=== PATIENT | male | born 1985 | race Caucasian/White ===

== ENCOUNTER 2016-12-16 22:42 | Emergency (ER) | payer OTHER ==
[~2016-12-16] VITALS: Ht 185.4 cm; Wt 100.0 kg
[2016-12-16 22:45] VITALS: BP 130/75; PULSE 131; RESP 14; TEMP 98.5; O2SAT 96
[2016-12-16] MEDS ORDERED: LIDOCAINE HCL 1% 50 ML VIAL INFIL ONE (23:00)
[2016-12-16] MEDS ORDERED: TETANUS/DIPHTHERIA TOXOID ADULT 0.5 ML VIAL IM ONE (23:00)
[2016-12-16] MEDS ORDERED: [UNRECOGNIZED DRUG - CODE] PO (23:10)
[2016-12-16 23:31] LABS: AUTOMATED NEUTROPHIL # 7.7 TH/MM3 (1.8-7.7); BASOPHIL % 0.4 % (0.0-2.0); HEMATOCRIT 47.7 % (39.0-51.0); HEMO FLAGS DIFF FINAL; LYMPH % 12.1 % (9.0-44.0); LYMPHOCYTE # 1.2 TH/MM3 (1.0-4.8); MEAN CORPUSCULAR HGB CONC 34.1 % (32.0-36.0); MONO % 8.9 % (0.0-8.0); NEUT % 78.6 % (16.0-70.0); PLATELET COUNT 264 TH/MM3 (150-450); RED BLOOD COUNT 5.25 MIL/MM3 (4.50-5.90); RED CELL DISTRIBUTION WIDTH 13.7 % (11.6-17.2); WHITE BLOOD COUNT 9.8 TH/MM3 (4.0-11.0)
--- NOTE | 2016-12-16 23:34 | PD ---
Physical Exam Time Seen by Provider: 23:00 Data Data Last Documented VS Vital Signs Date Time Temp Pulse Resp B/P Pulse Ox O2 Delivery O2 Flow Rate FiO2 12/16/16 23:10 14 12/16/16 22:45 98.5 131 130/75 96 Room Air Orders Complete Blood Count With Diff (12/16/16 22:52) Comprehensive Metabolic Panel (12/16/16 22:52) Psych Screen (12/16/16 22:52) Drug Screen, Random Urine (12/16/16 22:52) Alcohol (Ethanol) (12/16/16 22:52) Tetanus/Diphtheria Tox Adult (Tetanus/Di (12/16/16 23:00) Lidocaine 1% Inj (50 Ml) (Xylocaine 1% I (12/16/16 23:00) Salicylates (Aspirin) (12/16/16 23:15) Tylenol (Acetaminophen) (12/16/16 23:00) Labs Laboratory Tests Test 12/16/16 23:00 White Blood Count 9.8 TH/MM3 Red Blood Count 5.25 MIL/MM3 Hemoglobin 16.3 GM/DL Hematocrit 47.7 % Mean Corpuscular Volume 91.0 FL Mean Corpuscular Hemoglobin 31.0 PG Mean Corpuscular Hemoglobin 34.1 % Concent Red Cell Distribution Width 13.7 % Platelet Count 264 TH/MM3 Mean Platelet Volume 8.1 FL Neutrophils (%) (Auto) 78.6 % Lymphocytes (%) (Auto) 12.1 % Monocytes (%) (Auto) 8.9 % Eosinophils (%) (Auto) 0.0 % Basophils (%) (Auto) 0.4 % Neutrophils # (Auto) 7.7 TH/MM3 Lymphocytes # (Auto) 1.2 TH/MM3 Monocytes # (Auto) 0.9 TH/MM3 Eosinophils # (Auto) 0.0 TH/MM3 Basophils # (Auto) 0.0 TH/MM3 CBC Comment DIFF FINAL Differential Comment MDM Medical Record Reviewed: Yes Supervised Visit with SINA: No Narrative Course 31-year-old male presents with a self-inflicted laceration to the volar left wrist, I was asked to repair the wound. The patient verbally consented. Examination reveals a 4 cm very jagged laceration with palmaris longus tendon laceration as well. Some tissue was debrided in order to approximate the wound edges. He tolerated procedure well. Procedures Procedure Narrative LACERATION LOCATION: Left wrist LENGTH: 4 cm NUMBER OF STITCHES/KATHI:8 REPAIR: The area of the laceration was prepped with Betadine and sterilely draped. The laceration was infiltrated with 1% lidocaine. The wound was copiously irrigated and explored The wound was closed using 5-0 PROLENE simple interrupted. This was a single layer repair. A sterile dressing was applied. The patient was advised to keep the dressing clean and dry. Patient tolerated the procedure well. Nikita Lockwood Dec 16, 2016 23:34
[2016-12-16 23:36] LABS: AMPHETAMINE, URINE POS (NEG); BARBITURATES, URINE NEG (NEG); COCAINE, URINE POS (NEG)
[2016-12-16 23:44] LABS: ALT (GPT) 74 U/L (12-78); ANION GAP 13 MEQ/L (5-15); AST (GOT) 55 U/L (15-37); BICARBONATE 24.7 MEQ/L (21.0-32.0); BLOOD UREA NITROGEN 14 MG/DL (7-18); CHLORIDE 99 MEQ/L (98-107); GLOMERULAR FILTRATION RATE 60 ML/MIN (>89); POTASSIUM 4.1 MEQ/L (3.5-5.1); SODIUM (NA) 137 MEQ/L (136-145)
--- NOTE | 2016-12-16 23:44 | PD ---
HPI Chief Complaint: Psychiatric Symptoms Time Seen by Provider: 22:52 Travel History International Travel<30 days: No Contact w/Intl Traveler<30days: No Traveled to known affect area: No History of Present Illness HPI Patient 31-year-old male presents emergency department for evaluation of laceration to left wrist. Patient states he was feeling depressed because his girlfriend dumped him. He does admit to cocaine use tonight as well as alcohol. He states he sliced his wrist approximately 4-5 hours prior to arrival with a hunting knife. He finally decided he needed to come in and be seen for. He denies any other injuries. Denies a psychiatric history he does endorse suicidal ideation. PFSH Past Medical History Diminished Hearing: No Medical other: Yes (ULCERATIVE COLITIS) Tetanus Vaccination: < 5 Years Influenza Vaccination: Yes Past Surgical History Surgical History: No Previous Surgery Social History Alcohol Use: Yes (SOCIALLY-3 TEQUILLA DRINKS TODAY) Tobacco Use: No Substance Use: Yes (EXCSTACY AND COCAINE TODAY) Allergies-Medications (Allergen,Severity, Reaction): Coded Allergies: No Known Allergies (Unverified , 12/16/16) Reported Meds & Prescriptions Reported Meds & Active Scripts Active Reported Mercaptopurine (Mercaptopurine Monohydrate (Bu) 1 Pow Pow 50 Mg PO DAILY Review of Systems Except as stated in HPI: all other systems reviewed are Neg Physical Exam Narrative GENERAL: Well developed well-nourished no apparent distress. SKIN: Focused skin assessment warm/dry. His fairly abraded laceration in the volar radial aspect of the left wrist. Proximally 3 cm in length. Does appear to have tendon-like structure lacerated. No bleeding. Other than the laceration to the left wrist there are no other lacerations seen on a complete head to toe exam. HEAD: Atraumatic. Normocephalic. EYES: Pupils equal and round. No scleral icterus. No injection or drainage. ENT: No nasal bleeding or discharge. Mucous membranes pink and moist. NECK: Trachea midline. No JVD. CARDIOVASCULAR: Regular rate and rhythm. No murmur appreciated. RESPIRATORY: No accessory muscle use. Clear to auscultation. Breath sounds equal bilaterally. GASTROINTESTINAL: Abdomen soft, non-tender, nondistended. Hepatic and splenic margins not palpable. MUSCULOSKELETAL: No obvious deformities. No clubbing. No cyanosis. No edema. All range of motion's at the left wrist including flexion and extension and abduction and adduction are intact. There are brisk cap refills in all 5 digits of left hand. All flexor tendons at the fingers at MCP and PIP and DIP joints are intact. Sensory is intact and normal and equal to the other side. Radial and ulnar pulses are palpable and bilaterally equal. NEUROLOGICAL: Awake and alert. No obvious cranial nerve deficits. Motor grossly within normal limits. Normal speech. PSYCHIATRIC: Normal affect and depressed mood. Endorse suicidal ideation. Data Data Last Documented VS Vital Signs Date Time Temp Pulse Resp B/P Pulse Ox O2 Delivery O2 Flow Rate FiO2 12/17/16 01:53 16 12/17/16 00:01 98.5 109 126/72 100 Room Air Orders Complete Blood Count With Diff (12/16/16 22:52) Comprehensive Metabolic Panel (12/16/16 22:52) Psych Screen (12/16/16 22:52) Drug Screen, Random Urine (12/16/16 22:52) Alcohol (Ethanol) (12/16/16 22:52) Tetanus/Diphtheria Tox Adult (Tetanus/Di (12/16/16 23:00) Lidocaine 1% Inj (50 Ml) (Xylocaine 1% I (12/16/16 23:00) Salicylates (Aspirin) (12/16/16 23:15) Tylenol (Acetaminophen) (12/16/16 23:00) Lorazepam (Ativan) (12/17/16 00:00) Oxycodone-Acetamin 5-325 Mg (Percocet (12/17/16 00:45) Labs Laboratory Tests Test 12/16/16 23:00 White Blood Count 9.8 TH/MM3 Red Blood Count 5.25 MIL/MM3 Hemoglobin 16.3 GM/DL Hematocrit 47.7 % Mean Corpuscular Volume 91.0 FL Mean Corpuscular Hemoglobin 31.0 PG Mean Corpuscular Hemoglobin 34.1 % Concent Red Cell Distribution Width 13.7 % Platelet Count 264 TH/MM3 Mean Platelet Volume 8.1 FL Neutrophils (%) (Auto) 78.6 % Lymphocytes (%) (Auto) 12.1 % Monocytes (%) (Auto) 8.9 % Eosinophils (%) (Auto) 0.0 % Basophils (%) (Auto) 0.4 % Neutrophils # (Auto) 7.7 TH/MM3 Lymphocytes # (Auto) 1.2 TH/MM3 Monocytes # (Auto) 0.9 TH/MM3 Eosinophils # (Auto) 0.0 TH/MM3 Basophils # (Auto) 0.0 TH/MM3 CBC Comment DIFF FINAL Differential Comment Sodium Level 137 MEQ/L Potassium Level 4.1 MEQ/L Chloride Level 99 MEQ/L Carbon Dioxide Level 24.7 MEQ/L Anion Gap 13 MEQ/L Blood Urea Nitrogen 14 MG/DL Creatinine 1.38 MG/DL Estimat Glomerular Filtration 60 ML/MIN Rate Random Glucose 100 MG/DL Calcium Level 8.8 MG/DL Total Bilirubin 0.5 MG/DL Aspartate Amino Transf 55 U/L (AST/SGOT) Alanine Aminotransferase 74 U/L (ALT/SGPT) Alkaline Phosphatase 37 U/L Total Protein 7.8 GM/DL Albumin 4.5 GM/DL Salicylates Level LESS THAN 1.7 MG/DL Urine Opiates Screen NEG Acetaminophen Level LESS THAN 2.0 MCG/ML Urine Barbiturates Screen NEG Urine Amphetamines Screen POS Urine Benzodiazepines Screen NEG Urine Cocaine Screen POS Urine Cannabinoids Screen NEG Ethyl Alcohol Level 184 MG/DL MDM Medical Decision Making Medical Screen Exam Complete: Yes Emergency Medical Condition: Yes Differential Diagnosis Laceration, tendon laceration, suicidal ideation, depression, adjustment disorder. Narrative Course Patient 31-year-old male presents emergency department for evaluation of left wrist laceration which is admitted self-inflicted. Patient states been drinking doing cocaine and amphetamines his girlfriend broke up with him today and feeling depressed and cut himself because he was depressed. He said he did this with a hunting knife. Bleeding is controlled on arrival. Wound is repaired. There may be a small tendon laceration but it is probably the redundant wrist flexor is he is able to range everything in his hand. At this time he is medically stable for psychiatric evaluation and disposition. He is placed under Valenzuela act by me. Regarding the tendon lacerations appears to be a redundant wrist flexor. May be followed up on an outpatient basis. Diagnosis Primary Impression: Wrist laceration Qualified Code: S61.512A - Wrist laceration, left, initial encounter Additional Impression: Depression Referrals: Meg Lockwood MD Additional Instructions: Follow up with Dr. Lockwood for examination of your wrist. Return to ED in 10- 14 days for suture removal. Condition: Stable Oz Castellanos MD Dec 16, 2016 23:44
[2016-12-16 23:46] LABS: ALKALINE PHOSPHATASE 37 U/L (45-117); TOTAL BILIRUBIN ADULT 0.5 MG/DL (0.2-1.0)
[2016-12-16 23:50] LABS: ACETAMINOPHEN LESS THAN 2.0 MCG/ML (10.0-30.0)
[2016-12-17] MEDS ORDERED: LORazepam 1 MG TAB PO ONE
[2016-12-17 00:01] VITALS: BP 126/72; PULSE 109; RESP 16; TEMP 98.5; O2SAT 100
[2016-12-17] MEDS ORDERED: oxyCODONE/ACETAMINOPHEN 5 MG/325 MG TAB PO ONE (00:45)
[2016-12-17 08:55] VITALS: BP 149/82; PULSE 110; RESP 16; TEMP 98.2; O2SAT 95
[2016-12-17] MEDS ORDERED: ACETAMINOPHEN/HYDROcodone 325 MG/5 MG TAB PO ONE (09:00)
[2016-12-17] MEDS ORDERED: ULTR50TA5 PO (09:57)
--- NOTE | 2016-12-17 09:57 | PD ---
Physical Exam Narrative Patient was seen by psychiatrist and cleared for discharge. Data Data Last Documented VS Vital Signs Date Time Temp Pulse Resp B/P Pulse Ox O2 Delivery O2 Flow Rate FiO2 12/17/16 11:02 78 16 123/65 99 12/17/16 08:55 98.2 12/17/16 00:01 Room Air Orders Complete Blood Count With Diff (12/16/16 22:52) Comprehensive Metabolic Panel (12/16/16 22:52) Psych Screen (12/16/16 22:52) Drug Screen, Random Urine (12/16/16 22:52) Alcohol (Ethanol) (12/16/16 22:52) Tetanus/Diphtheria Tox Adult (Tetanus/Di (12/16/16 23:00) Lidocaine 1% Inj (50 Ml) (Xylocaine 1% I (12/16/16 23:00) Salicylates (Aspirin) (12/16/16 23:15) Tylenol (Acetaminophen) (12/16/16 23:00) Lorazepam (Ativan) (12/17/16 00:00) Oxycodone-Acetamin 5-325 Mg (Percocet (12/17/16 00:45) Acetamin-Hydrocod 325-5 Mg ([place] 5-325 (12/17/16 09:00) Labs Laboratory Tests Test 12/16/16 23:00 White Blood Count 9.8 TH/MM3 Red Blood Count 5.25 MIL/MM3 Hemoglobin 16.3 GM/DL Hematocrit 47.7 % Mean Corpuscular Volume 91.0 FL Mean Corpuscular Hemoglobin 31.0 PG Mean Corpuscular Hemoglobin 34.1 % Concent Red Cell Distribution Width 13.7 % Platelet Count 264 TH/MM3 Mean Platelet Volume 8.1 FL Neutrophils (%) (Auto) 78.6 % Lymphocytes (%) (Auto) 12.1 % Monocytes (%) (Auto) 8.9 % Eosinophils (%) (Auto) 0.0 % Basophils (%) (Auto) 0.4 % Neutrophils # (Auto) 7.7 TH/MM3 Lymphocytes # (Auto) 1.2 TH/MM3 Monocytes # (Auto) 0.9 TH/MM3 Eosinophils # (Auto) 0.0 TH/MM3 Basophils # (Auto) 0.0 TH/MM3 CBC Comment DIFF FINAL Differential Comment Sodium Level 137 MEQ/L Potassium Level 4.1 MEQ/L Chloride Level 99 MEQ/L Carbon Dioxide Level 24.7 MEQ/L Anion Gap 13 MEQ/L Blood Urea Nitrogen 14 MG/DL Creatinine 1.38 MG/DL Estimat Glomerular Filtration 60 ML/MIN Rate Random Glucose 100 MG/DL Calcium Level 8.8 MG/DL Total Bilirubin 0.5 MG/DL Aspartate Amino Transf 55 U/L (AST/SGOT) Alanine Aminotransferase 74 U/L (ALT/SGPT) Alkaline Phosphatase 37 U/L Total Protein 7.8 GM/DL Albumin 4.5 GM/DL Salicylates Level LESS THAN 1.7 MG/DL Urine Opiates Screen NEG Acetaminophen Level LESS THAN 2.0 MCG/ML Urine Barbiturates Screen NEG Urine Amphetamines Screen POS Urine Benzodiazepines Screen NEG Urine Cocaine Screen POS Urine Cannabinoids Screen NEG Ethyl Alcohol Level 184 MG/DL MDM Supervised Visit with SINA: Yes Diagnosis Primary Impression: Wrist laceration Qualified Code: S61.512A - Wrist laceration, left, initial encounter Additional Impression: Depression Referrals: Meg Lockwood MD Additional Instruction: Follow up with Dr. Lockwood for examination of your wrist. Return to ED in 10- 14 days for suture removal. Med/Other Pt SpecificInfo: Prescription(s) given Scripts Tramadol (Ultram)50 Mg Tab50 Mg PO Q6H PRN (PAIN) #12 TAB Prov:Colin Amor MD 12/17/16 Disposition: 01 DISCHARGE HOME Condition: Stable Colin Amor MD Dec 17, 2016 09:57
[2016-12-17 11:02] VITALS: BP 123/65
--- NOTE | 2016-12-17 11:50 | PD.CONS ---
Provisional Diagnosis Admission Date Valders I. Alcohol-induced mood disorder, alcohol, cocaine, amphetamines use disorder Valders II. Deferred Valders III. Ulcerative colitis Valders IV. Alcohol use disorder Valders V. 55 History of Present Illness Service Psychiatry Consult Requested By Primary Care Physician Ashley German MD HPI The patient is a 31-year-old man, domiciled alone in [place], employed, single, without any previous psychiatric history, any previous psychiatric hospitalizations, no previous suicidal attempts, medical history of ulcerative colitis, who presents emergency department for evaluation of laceration to left wrist. Patient states he was feeling depressed because his girlfriend dumped him a week ago. He was drinking alcohol, used cocaine and amphetamines, use a knife to cut himself and finally realized that he had to come to the ER for sutures. Psychotic evaluation today patient is calm, cooperative clinical is sober. Patient says that he is ashamed of his behavior , stating that he had to be very drunk and not himself to cut himself. He says that is true that he broke up with girlfriend about a week ago, but he was doing better fine and coping okay with the situation and he doesn't really understand why he cut himself. He says that he was not aware of what he was doing. Patient denies depressive symptoms, he denies anhedonia, he denies hopelessness, he denies helplessness, he denies low appetite, he denies problems with concentration, he denies problems sleeping, he denies suicidal and homicidal ideation. He denies visual and auditory hallucinations. 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 Patient is fully oriented 3, no attention deficit, no fluctuation of consciousness, no gross cognitive impairment observed. No paranoia, no delusions, no agitation or aggressive behavior present. Patient reports almost daily use of alcohol, 2-3 beers, occasionally use of amphetamines and cocaine. Review of Systems Constitutional: DENIES: Diaphoretic episodes, Fatigue, Fever, Weight gain, Weight loss, Chills, Dizziness, Change in appetite, Night Sweats Eyes: DENIES: Blurred vision, Diplopia, Eye inflammation, Eye pain, Vision loss , Photosensitivity, Double Vision Respiratory: DENIES: Apneas, Cough, Snoring, Wheezing, Hemoptysis, Sputum production, Shortness of breath Cardiovascular: DENIES: Chest pain, Palpitations, Syncope, Dyspnea on Exertion , PND, Lower Extremity Edema, Orthopnea, Claudication Musculoskeletal: DENIES: Joint pain, Muscle aches, Stiffness, Joint Swelling, Back pain, Neck pain Integumentary: DENIES: Abnormal pigmentation, Nail changes, Pruritus, Rash Hematologic/lymphatic: DENIES: Bruising, Lymphadenopathy Immunologic/allergic: DENIES: Eczema, Urticaria Neurologic: DENIES: Abnormal gait, Headache, Localized weakness, Paresthesias, Seizures, Speech Problems, Tremor, Poor Balance Psychiatric: DENIES: Anxiety, Confusion, Mood changes, Depression, Hallucinations, Agitation, Suicidal Ideation, Homicidal Ideation, Delusions Other Vertical 2-3 inches laceration left wrist covered by gauze Past Family Social History Coded Allergies: No Known Allergies (Unverified , 12/16/16) Active Scripts Tramadol (Ultram)50 Mg Tab50 Mg PO Q6H PRN (PAIN) #12 TAB Prov:Colin Amor MD 12/17/16 Reported Medications Mercaptopurine Monohydrate (Bu (Mercaptopurine)1 Pow Pow50 Mg PO DAILY 12/16/16 Family History He denies Social History Patient was born and raised in [place], he has been living in [place] since January 2015, he lives alone in [place], he is single, he works in his own company, his highest level of education is a college degree Patient's Strengths (min. 2) Family support, level of education Physical Exam On physical evaluation, no EPS, no psychomotor retardation, no tremors, no withdrawal symptoms Vital Signs Vital Signs Date Time Temp Pulse Resp B/P Pulse Ox O2 Delivery O2 Flow Rate FiO2 12/17/16 11:02 78 16 123/65 99 12/17/16 08:55 98.2 12/17/16 00:01 Room Air Lab Results WBC 9.8, Hgb 16.3, HCT 47.7, NA 137, K4.1, BUN 14, creatinine 1.3, AST 55, ALT 74, toxicology is positive for amphetamine and cocaine, BAL 184 Mental Status Examination Appearance man, athletic complexity, age appearing, good hygiene, [facility], he is calm and cooperative Speech: Unremarkable Orientation: x3 Memory: Unremarkable Thought Process: Logical Thought Content: Unremarkable Hallucination Type: None Attention and Concentration: Good Suicidal Ideation: No Previous Suicide Attempts: No Homicidal Ideation: No Previous Homicide Attempts: No Insight: Good Affect: Good Affect if Inappropriate: Flat Mood: Appropriate Motor Activity: Normal gait Assessment & Plan Problem List: (1) Alcohol abuse with alcohol-induced mood disorder Assessment & Plan: On psychiatric evaluation today patient is calm, cooperative and pleasant, his thought process is logical, coherent and relevant. He is clinically sober, without any evidence of subjective or objective depressive symptoms, aline or psychosis. The patient denies suicidal and homicidal ideation, he denies visual and auditory hallucinations. Recent self cutting behavior was most probably the result of poor judgment, emotional and mood lability secondary to acute alcohol, amphetamine and cocaine intoxication. Patient was widely educated about the importance of better control of alcohol use and avoiding illegal drugs. He was offered to be referred to detox, but he declines. Extensive support, motivation psycho education provided. He does not meet criteria for psychiatric admission at this moment. Valenzuela act will be lifted. ICD Code: F10.14 Assessment & Plan Estimated LOS: Christopher Serrano MD Dec 17, 2016 11:50
== END 2016-12-17 11:03 | disposition home or self-care (01) ==
LOC: NEPC 22:42 → NEPD 12-17 11:03
DX: S61.512A Laceration without foreign body of left wrist, initial encounter (principal); F32.9 Major depressive disorder, single episode, unspecified; F10.14 Alcohol abuse with alcohol-induced mood disorder; Z87.19 Personal history of other diseases of the digestive system; X78.1XXA Intentional self-harm by knife, initial encounter
CPT/HCPCS: 12002; 80053; 80307; 85025; 90471; 90714

== ENCOUNTER 2017-01-05 11:28 | Emergency (ER) | payer OTHER ==
[~2017-01-05] VITALS: Ht 182.9 cm; Wt 100.0 kg
[~2017-01-05 11:28] MED LIST: ULTR50TA5 PO; [UNRECOGNIZED DRUG - CODE] PO
[2017-01-05 11:29] VITALS: BP 134/66; PULSE 65; RESP 14; TEMP 98; O2SAT 100
--- NOTE | 2017-01-05 11:42 | PD ---
HPI . left wrist suture removal Chief Complaint: Wound/Suture/Staple Re-Check Time Seen by Provider: 11:38 Travel History International Travel<30 days: No Contact w/Intl Traveler<30days: No Traveled to known affect area: No History of Present Illness HPI 31-year-old male here for removal of sutures from his left wrist. Patient sustained a laceration on December 16, 2016 and is here to have the stitches removed. He denies any complications. He does have some mild swelling that has been present since the initial injury, but denies any worsening redness, drainage or streaking. He says initially the area was somewhat inflamed, but now it is resolved. He has no other complaints. He denies any fever or chills. PFSH Past Medical History Diminished Hearing: No Social History Alcohol Use: Yes (SOCIALLY-3 TEQUILLA DRINKS TODAY) Tobacco Use: No Substance Use: No Allergies-Medications (Allergen,Severity, Reaction): Coded Allergies: No Known Allergies (Unverified , 01/05/17) Reported Meds & Prescriptions Reported Meds & Active Scripts Active Ultram (Tramadol HCl) 50 Mg Tab 50 Mg PO Q6H PRN Reported Mercaptopurine (Mercaptopurine Monohydrate (Bu) 1 Pow Pow 50 Mg PO DAILY Review of Systems General / Constitutional: No: Fever Eyes: No: Visual changes HENT: No: Headaches Cardiovascular: No: Chest Pain or Discomfort Respiratory: No: Shortness of Breath Gastrointestinal: No: Abdominal Pain Genitourinary: No: Dysuria Musculoskeletal: No: Pain Skin: Positive Other (left wrist suture removal ), No Rash Neurologic: No: Weakness Psychiatric: No: Depression Endocrine: No: Polydipsia Hematologic/Lymphatic: No: Easy Bruising Physical Exam Narrative GENERAL: AAO x 3, no acute distress, Well-nourished, well-developed patient. SKIN: Warm and dry. No visible rashes or bruising. Left wrist volar aspect with [address], to slightly overgrown. Mild reaction to stitches locally without any evidence of cellulitis. There is no drainage. HEAD: Normocephalic and atraumatic. EYES: No scleral icterus. No injection or drainage. ENT: No nasal drainage noted. Airway patent. NECK: Supple, trachea midline. No JVD. CARDIOVASCULAR: Regular rate and rhythm without murmurs, gallops, or rubs. RESPIRATORY: Breath sounds equal bilaterally. No accessory muscle use. No rhonchi or rales. GASTROINTESTINAL: Visual inspection normal EXTREMITIES: No cyanosis or edema. BACK: Nontender without obvious deformity. No CVA tenderness. PSYCH: AAO x 3, normal affect. Data Data Last Documented VS Vital Signs Date Time Temp Pulse Resp B/P Pulse Ox O2 Delivery O2 Flow Rate FiO2 01/05/17 11:29 98.0 65 14 134/66 100 MDM Medical Decision Making Medical Screen Exam Complete: Yes Emergency Medical Condition: Yes Medical Record Reviewed: Yes Differential Diagnosis suture removal, wound dehiscence, less likely cellulitis Narrative Course 31-year-old male here for removal of sutures from his left wrist. Patient sustained a laceration on December 16, 2016 and is here to have the stitches removed. He denies any complications. He does have some mild swelling that has been present since the initial injury, but denies any worsening redness, drainage or streaking. He says initially the area was somewhat inflamed, but now it is resolved. He has no other complaints. He denies any fever or chills. Patient seen and examined. 8 sutures removed from the left volar aspect of the wrist. No dehiscence. Patient tolerated without incident He has not yet followed with hand. I reminded him. He doesn't seem too interested and did not want to speak of initial injury. Advised if any signs of infection, to return to emergency department. Patient verbalized understanding of instructions, questions were answered, and thanked me for their care. I advised them if their condition worsens, please return to the nearest emergency room for further care. Procedures Procedure Narrative Suture removal to the left volar wrist 8 sutures removed Area wiped with alcohol No evidence of cellulitis Patient tolerated without incident Diagnosis Primary Impression: Visit for suture removal Additional Instructions: Please return to emergency department if your symptoms return or worsen. Follow up with your primary care provider. Disposition: 01 DISCHARGE HOME Condition: Stable She Boyd Jan 05, 2017 11:42
== END 2017-01-05 11:50 | disposition home or self-care (01) ==
LOC: NEPK 11:28
DX: Z48.02 Encounter for removal of sutures (principal)
CPT/HCPCS: 99281